=== PATIENT | male | born 1935 | race Caucasian/White ===

== ENCOUNTER 2016-10-08 18:30 | Outpatient (CLI) | payer SELFPAY | END 2016-10-08 18:31 | disposition EMS.NT | LOC: EMS 18:30 | PROVIDERS: ATTEND Surgery | DX: R42 Dizziness and giddiness (principal); R53.1 Weakness; W18.39XA Other fall on same level, initial encounter; Y92.009 Unspecified place in unspecified non-institutional (private) residence as the place of occurrence of the external cause ==

== ENCOUNTER 2017-11-22 12:44 | Outpatient (CLI) | payer MEDICARE, OTHER | END 2017-11-22 12:45 | disposition critical access hospital (66) | LOC: EMS 12:44 | PROVIDERS: ATTEND Surgery | DX: R53.1 Weakness (principal); R41.0 Disorientation, unspecified; R09.89 Other specified symptoms and signs involving the circulatory and respiratory systems | CPT/HCPCS: A0425; A0427 ==

== ENCOUNTER 2017-11-22 13:31 | Inpatient (IN) | payer MEDICARE, OTHER ==
--- NOTE | 2017-11-22 13:41 | ED Physician Documentation ---
History of Present Illness - Stated complaint Stated Complaint: FAILURE TO THRVE - Additonal information Additional information: hx from pt 82 male BIBA for AMS X 3 days subj fever poor PO no cough but hypoxic and wheezing en route - hx COPD - beter with neb and O2 no NVD strong smelling urine no blood thinners no fall no apparent pain DNR per [place] POL Review of Systems Constitutional: reports: Fever Ears: denies: Ear pain Throat: denies: Sore throat Cardiac: denies: Chest pain / pressure Respiratory: denies: Cough GI: denies: Abdominal Pain, Nausea, Vomiting, Diarrhea : reports: Other (strong smelling). denies: Dysuria Neurologic: reports: Generalized weakness, Altered mental status. denies: Headache, Head injury Endocrine: denies: Easy bruising / bleeding Immunocompromised: denies: Immunocompromised PD PAST MEDICAL HISTORY - Present Medications Home Medications: Ambulatory Orders Medication Instructions Recorded Confirmed Albuterol Sulf [Ventolin Hfa 2 puffs INH Q4H PRN 11/22/17 11/22/17 Inhaler] Amlodipine Besylate [Norvasc] 2.5 mg PO DAILY 11/22/17 11/22/17 Ergocalciferol (Vitamin D2) 50,000 unit PO Q7D 11/22/17 11/22/17 [Drisdol] Glimepiride [Glimepiride] 1 mg PO DAILYWM 11/22/17 11/22/17 Metformin HCl [Metformin HCl] 500 mg PO BIDWM 11/22/17 11/22/17 Naproxen Sodium [Aleve] 220 mg PO BID PRN 11/22/17 11/22/17 Omeprazole [Omeprazole] 20 mg PO QDAC 11/22/17 11/22/17 Oxybutynin [Ditropan] 5 mg PO BID 11/22/17 11/22/17 predniSONE [Deltasone] 5 mg PO DAILYWM 11/22/17 11/22/17 - Allergies Allergies/Adverse Reactions: Allergies Allergy/AdvReac Type Severity Reaction Status Date / Time iodine Allergy Anaphylaxis Verified 11/22/17 13:43 PD ED PE NORMAL - Vitals Vital signs reviewed: Yes - General General: No: Alert and oriented X 3 (just name) - HEENT HEENT: PERRL. No: Moist mucous membranes (dry) - Cardiac Cardiac: RRR - Respiratory Respiratory: Other (coarse shallow no wheeze now) - Abdomen Abdomen: Soft, Non tender - Derm Derm: Normal color - Extremities Extremities: Normal ROM s pain - Neuro Neuro: Other (confused not following commands but moving all ext) Eye Opening: To Voice Motor: Withdraws to Pain Verbal: Confused GCS Score: 11 Results - Vitals Vitals: Vital Signs - 24 hr 11/22/17 11/22/17 11/22/17 13:35 14:00 15:07 Temperature 36.5 C Heart Rate 82 81 82 Respiratory 16 22 Rate Blood Pressure 152/75 H 148/78 H O2 Saturation 95 95 95 11/22/17 11/22/17 15:52 17:00 Temperature Heart Rate 80 74 Respiratory 17 26 H Rate Blood Pressure 140/75 H 129/70 O2 Saturation 98 98 Oxygen O2 Source Nasal cannula - Labs Labs: Laboratory Tests 11/22/17 11/22/17 11/22/17 13:55 14:36 14:36 WBC 12.1 H RBC 4.89 Hgb 14.3 Hct 42.1 MCV 86.0 MCH 29.2 MCHC 34.0 RDW 13.5 Plt Count 230 MPV 9.2 Neut # (Auto) 6.2 Lymph # (Auto) 3.8 H Sutter # (Auto) 1.9 H Eos # (Auto) 0.2 Baso # (Auto) 0.1 Absolute Nucleated RBC 0.00 Nucleated RBC % 0.0 Manual Slide Review Indicated WBC Morphology Platelet Estimate NORMAL (130-450,000) Platelet Morphology NORMAL APPEARANCE RBC Morph Micro Appear NORMAL APPEARANCE Sodium 136 Potassium 3.9 Chloride 99 L Carbon Dioxide 27 Anion Gap 10.0 BUN 16 Creatinine 1.3 H Estimated GFR (MDRD) 53 L Glucose 183 H Lactic Acid Calcium 9.1 Total Bilirubin 2.2 H AST 16 ALT 15 Alkaline Phosphatase 66 Troponin I < 0.04 Total Protein 7.0 Albumin 3.3 Globulin 3.7 Albumin/Globulin Ratio 0.9 L Lipase 21 L TSH Urine Color Urine Clarity Urine pH Ur Specific Surrency Urine Protein Urine Glucose (UA) Urine Ketones Urine Occult Blood Urine Nitrite Urine Bilirubin Urine Urobilinogen Ur Leukocyte Esterase Urine RBC Urine WBC Urine WBC Clumps Ur Squamous Epith Cells Urine Bacteria Ur Microscopic Review Urine Culture Comments 11/22/17 11/22/17 11/22/17 14:36 14:36 14:55 WBC RBC Hgb Hct MCV MCH MCHC RDW Plt Count MPV Neut # (Auto) Lymph # (Auto) Sutter # (Auto) Eos # (Auto) Baso # (Auto) Absolute Nucleated RBC Nucleated RBC % Manual Slide Review WBC Morphology Platelet Estimate Platelet Morphology RBC Morph Micro Appear Sodium Potassium Chloride Carbon Dioxide Anion Gap BUN Creatinine Estimated GFR (MDRD) Glucose Lactic Acid 1.4 Calcium Total Bilirubin AST ALT Alkaline Phosphatase Troponin I Total Protein Albumin Globulin Albumin/Globulin Ratio Lipase TSH 2.26 Urine Color YELLOW Urine Clarity TURBID Urine pH 6.0 Ur Specific Surrency >=1.030 H Urine Protein 100 H Urine Glucose (UA) NEGATIVE Urine Ketones TRACE Urine Occult Blood MODERATE H Urine Nitrite POSITIVE H Urine Bilirubin NEGATIVE Urine Urobilinogen 0.2 (NORMAL) Ur Leukocyte Esterase LARGE H Urine RBC TNTC H Urine WBC >25 H Urine WBC Clumps PRESENT Ur Squamous Epith Cells NONE SEEN Urine Bacteria Many H Ur Microscopic Review INDICATED Urine Culture Comments INDICATED - Rads (name of study) CTH Radiology: See rad report (no acute process, remote infarcts, mod enlarged ventricles suggesting possible normal pressure hydrocephalus) CXR Radiology: See rad report (NACPD, old clavicle fx) CT AP Radiology: See rad report (no stones, bladder wall thickening and perinephric starnding c/w pyelo, diverticulosis and chronic findings) PD MEDICAL DECISION MAKING - ED course ED course: told family about NPH "extra water on the brain" and thinks that is not new AMS fever and UTI but not hypotensive or tachy and neg lactate - do not htink sepsis - gave IV ab - not 30cc/kg bolus though given hematuria - and bili - got CT AP - no gallstones or kidney stones will admit spoke to hospitalist at 1740 - Sepsis Event Vital Signs: Vital Signs - 24 hr 11/22/17 11/22/17 11/22/17 13:35 14:00 15:07 Temperature 36.5 C Heart Rate 82 81 82 Respiratory 16 22 Rate Blood Pressure 152/75 H 148/78 H O2 Saturation 95 95 95 11/22/17 11/22/17 15:52 17:00 Temperature Heart Rate 80 74 Respiratory 17 26 H Rate Blood Pressure 140/75 H 129/70 O2 Saturation 98 98 Oxygen O2 Source Nasal cannula Departure - Departure Disposition: 66 [facility] DC/Xfer Clinical Impression: Mental status alteration Qualifiers: Altered mental status type: unspecified Qualified Code(s): R41.82 - Altered mental status, unspecified UTI (urinary tract infection) Qualifiers: Urinary tract infection type: site unspecified Hematuria presence: with hematuria Qualified Code(s): N39.0 - Urinary tract infection, site not specified
[2017-11-22 14:09] LABS: BASOPHILS # (AUTO) 0.1 10^3/uL (0.0-0.1); BASOPHILS % (AUTO) 0.4 %; EOSINOPHILS # (AUTO) 0.2 10^3/uL (0.0-0.7); EOSINOPHILS % (AUTO) 1.5 %; HGB - HEMOGLOBIN 14.3 g/dL (14.0-18.0); LYMPHOCYTES # (AUTO) 3.8 10^3/uL (1.5-3.5); LYMPHOCYTES % (AUTO) 31.4 %; MEAN CORPUSCULAR HEMOGLOBIN 29.2 pg (27.0-31.0); MEAN PLATELET VOLUME 9.2 fL (7.4-11.4); MONOCYTES # (AUTO) 1.9 10^3/uL (0.0-1.0); MONOCYTES % (AUTO) 15.5 %; NEUTROPHILS # (AUTO) 6.2 10^3/uL (1.5-6.6); NEUTROPHILS % (AUTO) 51.2 %; PLT - PLATELET COUNT 230 10^3/uL (130-450); RED BLOOD COUNT 4.89 10^6/uL (4.70-6.10); RED CELL DISTRIBUTION WIDTH 13.5 % (12.0-15.0); WHITE BLOOD COUNT 12.1 x10^3/uL (4.8-10.8)
[2017-11-22 14:41] LABS: PLATELET MORPHOLOGY NORMAL APPEARANCE (NORMAL)
[2017-11-22 14:42] LABS: PLATELET ESTIMATE, MANUAL NORMAL (130-450,000) (NORMAL); RBC MORPHOLOGY (MULTIPLE) NORMAL APPEARANCE (NORMAL)
[2017-11-22 14:54] LABS: ALBUMIN 3.3 g/dL (3.2-5.5); ALBUMIN/GLOBULIN RATIO 0.9 (1.0-2.2); BILIRUBIN,TOTAL 2.2 mg/dL (0.2-1.0); CALCIUM 9.1 mg/dL (8.5-10.3); CREATININE 1.3 mg/dL (0.6-1.2)
--- NOTE | 2017-11-22 14:55 | CT Report ---
Procedure Date: 11/22/2017 Accession Number: [id number] / [id number] Procedure: CT - Head W/O CPT Code: FULL RESULT: EXAM: CT HEAD EXAM DATE: 11/22/2017 02:23 PM. CLINICAL HISTORY: AMS. COMPARISON: None. TECHNIQUE: Multiaxial CT images were obtained from the foramen magnum to the vertex. Reformats: Sagittal and coronal. IV contrast: None. In accordance with CT protocol optimization, one or more of the following dose reduction techniques were utilized for this exam: automated exposure control, adjustment of mA and/or KV based on patient size, or use of iterative reconstructive technique. FINDINGS: Parenchyma: No intraparenchymal hemorrhage. No evidence of mass, midline shift, or CT findings of acute infarct. Remote right cerebellar infarct. Remote lacunar infarct in the left thalamus. Peralta-white differentiation is distinct. Mild white matter hypoattenuation. Extraaxial Spaces: Mild volume loss. No subdural or epidural collections identified. Ventricles: Moderately enlarged lateral and third ventricles, sightly out of proportion to sulci. Sinuses and Orbits: Imaged paranasal sinuses, orbits, and mastoids show no significant abnormality. Bones: No evidence of fracture or calvarial defect. Other: None. IMPRESSION: 1. No acute intracranial abnormality. 2. Remote left thalamic and right cerebellar infarcts. 3. Moderately enlarged ventricles may be due to volume loss. The differential diagnosis includes normal pressure hydrocephalus. RADIA
[2017-11-22 15:21] LABS: BILIRUBIN,URINE NEGATIVE (NEGATIVE); GLUCOSE, URINE (UA) NEGATIVE (NEGATIVE); KETONES,URINE (UA) TRACE mg/dL (NEGATIVE); LEUKOCYTE ESTERASE, URINE LARGE (NEGATIVE); NITRITE,URINE POSITIVE (NEGATIVE); OCCULT BLOOD,URINE MODERATE (NEGATIVE); PROTEIN,URINE 100 mg/dL (NEGATIVE); UROBILINOGEN,URINE 0.2 (NORMAL) E.U./dL (NORMAL)
--- NOTE | 2017-11-22 15:27 | XRAY Report ---
Procedure Date: 11/22/2017 Accession Number: [id number] / [id number] Procedure: XR - Chest 2 View X-Ray CPT Code: 53512 FULL RESULT: EXAM: CHEST RADIOGRAPHY. EXAM DATE: 11/22/2017 02:54 PM. CLINICAL HISTORY: Sub fever hypoxia, altered mental status. COMPARISON: None. TECHNIQUE: 2 views. FINDINGS: Lungs/Pleura: No focal consolidation, pleural effusion or pneumothorax. Lungs appear hyperinflated suggesting COPD. Pulmonary vasculature is within normal limits. Mediastinum: Heart and mediastinal contours are unremarkable. Other: Numerous upper abdominal surgical clips present. Multifocal wedge compression deformities with underlying diffuse osseous demineralization, endplate remodeling suggests these are chronic. Old healed right clavicular fracture. 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 IMPRESSION: 1. No acute cardiopulmonary abnormality. 2. 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 Recommend correlation with physical exam and clinical history to assess acuity. RADIA
[2017-11-22 15:39] LABS: CLARITY,URINE TURBID (CLEAR)
[2017-11-22 15:40] LABS: BACTERIA,URINE Many /HPF (None Seen); RBC,URINE TNTC /HPF (0-5); SQUAMOUS EPITHELIAL CELL,UR NONE SEEN (<= Few); WBC CLUMPS,URINE PRESENT
[2017-11-22] MEDS ORDERED: cefTRIAXone 1 GM in SODIUM CHLORIDE 0.9% MINIBAG 100 ML IV STA (15:46)
--- NOTE | 2017-11-22 17:16 | CT Report ---
Procedure Date: 11/22/2017 Accession Number: [id number] / [id number] Procedure: CT - Abdomen/Pelvis W/O CPT Code: FULL RESULT: EXAM: CT ABDOMEN AND PELVIS (CT KUB) EXAM DATE: 11/22/2017 04:44 PM. CLINICAL HISTORY: Urinary tract infection, hematuria, question stone. COMPARISONS: Same-day chest radiograph. TECHNIQUE: Routine axial helical CT imaging was performed through the abdomen and pelvis without IV contrast. Reconstructions: Coronal and sagittal. In accordance with CT protocol optimization, one or more of the following dose reduction techniques were utilized for this exam: automated exposure control, adjustment of mA and/or KV based on patient size, or use of iterative reconstructive technique. FINDINGS: Lung Bases: No mass, consolidation or pleural effusion. Coronary artery calcifications with normal heart size. Small pericardial effusion located anteriorly. Right Kidney/Ureter: No stones, hydronephrosis or hydroureter. No contour-deforming lesion. Mild perinephric stranding is symmetric with the left. Left Kidney/Ureter: No stones, hydronephrosis or hydroureter. No contour-deforming lesion. Mild perinephric stranding is symmetric with the right. Other Solid Organs: Punctate calcified granulomata within the liver which is otherwise unremarkable (3/39). Moderate to severe atrophy of the pancreas which is otherwise unremarkable. Normal adrenal glands. Normal-sized spleen. Gallbladder/Bile Ducts: Unremarkable. Peritoneal Cavity: No free fluid or free air. No jewels adenopathy by noncontrast exam. No evidence of bowel obstruction or inflammation. Postsurgical changes in the left upper quadrant and near the GE junction. Stool burden is within normal limits. Mild distal colonic diverticulosis without acute diverticulitis. Appendix is normal. 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 Urinary bladder wall appears thickened. Vasculature: No abdominal aortic aneurysm with moderate to marked calcific atherosclerosis. Other: Partially visualized bilateral total hip arthroplasties. Diffuse osseous demineralization. No acute osseous abnormality or suspicious focal osseous lesion. IMPRESSION: 1. Urinary bladder wall thickening and mild bilateral perinephric stranding without calculi or obstruction. Findings are in keeping with cystitis. The perinephric stranding may be senescent or could be seen with urinary tract infection or pyelonephritis. No evidence of a perinephric abscess. 2. Colonic diverticulosis without acute diverticulitis and additional findings as above.. RADIA
[2017-11-22] MEDS ORDERED: PROMETHAZINE 25 MG/1 ML VIAL IM PRN (17:43)
[2017-11-22] MEDS ORDERED: ONDANSETRON 4 MG/2 ML VIAL IVP PRN (17:43)
[2017-11-22] MEDS ORDERED: ACETAMINOPHEN 325 MG TABLET PO PRN (17:43)
[2017-11-22] MEDS ORDERED: oxyCODONE 5 MG TABLET PO PRN (17:43)
[2017-11-22] MEDS ORDERED: SODIUM CHLORIDE FLUSH 0.9% 10 ML SYRINGE IVP PRN (17:43)
[2017-11-22] MEDS ORDERED: PROCHLORPERAZINE 10 MG/2 ML VIAL IVP PRN (17:43)
--- NOTE | 2017-11-22 17:53 | HISTORY & PHYSICAL EXAMINATION ---
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 According to the patient's the patient has been declining over the last 7-8 years with worsening COPD and really declined over the last year and a half. She states that things started when he had a stroke and fell and was taken to a trauma care unit where he was hospitalized for prolonged time. She states that he has been in and out of the hospital multiple times over the last year. She states that her and her used to spend their kim in [place] but recently their children have brought them permanently up to [facility] as the patient's health has become so poor. She states that over the last few months his COPD is so bad that he can barely walk 4-5 feet before he has to stop and sit in his walker. She states that his quality of life has declined significantly. Over the last 3-4 days she states that the patient has had decreased appetite and has only eaten a couple of pieces of watermelon in the last 4 days. She states that he has become increasingly confused and this morning he was crying out and seemed to be acting like a child. She states that he became very confused last night and was not making any sense. She states that a home health worker came to see him today and advised that he come to the emergency department. She also states that she is noted that he has had foul-smelling urine the last several days. She is also noticed that it has been cloudy and blood-tinged. The patient himself is unable to provide any significant history. He has difficulties with his speech and although he does greet me he cannot give me much insight on his illness or what has been going on over the last several days. On presentation to the emergency department the patient was afebrile and slightly hypertensive but otherwise vital signs were within normal limits. The patient was very confused and again unable to provide history. The patient underwent routine lab work which showed that he had a leukocytosis of 12.1 and a mildly elevated bilirubin of 2.2. The patient's lactic acid was 1.4 and his TSH was normal. Patient's creatinine was 1.3 with no prior baseline. Patient was hyperglycemic with a glucose of 183. The patient's urine was very cloudy appearing and was positive for urinary tract infection with greater than 25 WBCs , many bacteria, positive leukocyte esterase, positive nitrites and moderate blood. The patient did undergo a chest x-ray which showed his old healed right clavicular fracture and chronic ununited left distal clavicular fracture. There was no evidence of any cardiopulmonary abnormality on the chest x-ray. The patient also had a CT head which showed old left thalamic and right cerebellar infarcts as well as normal pressure hydrocephalus. There was no acute findings on the CT scan. The patient also underwent a CT of his abdomen and pelvis which revealed bladder wall thickening and mild bilateral perinephric stranding consistent with a cystitis. Given the patient's altered mental status, leukocytosis and severe urinary tract infection the patient was admitted to the medical [facility] for IV antibiotics and IV fluids. History - Past Medical History Cardiovascular: reports: Hypertension Respiratory: reports: COPD Neuro: reports: Dementia, CVA, Other (NPH) Endocrine/Autoimmune: reports: Type 2 diabetes - Past Surgical History General: reports: Hiatal hernia repair, Other - Family & Social History Family History: Mother: (Father at the age of 70 and mother when the patient was young), CAD, Father: Family History Comment/Other: The patient was an only child and there is no family history of diabetes or stroke. Living arrangement: At home Living Situation: With spouse/s.o. Social History Notes: The patient lives with his . The patient is completely dependent on his for all his activities of daily living. He has been dependent on her for several years now. The couple have been for 43 years. The patient spent 46 years of his life and possible and then 13 years on [facility]. He spent many of the years on [facility] [place] to [place] during the [place]. The patient has 4 biological children and 2 stepchildren. He has 7 grandchildren. The patient has a history of heavy smoking but quit many years ago. He smoked up to 3 packs a day for 40 years. He was a social drinker but has not had alcohol for several years now. He denies any illicit drug use - POLST Patient has POLST: Yes POLST Status: DNR Meds/Allgy - Home Medications Home Medications: Ambulatory Orders Medication Instructions Recorded Confirmed Albuterol Sulf [Ventolin Hfa 2 puffs INH Q4H PRN 11/22/17 11/22/17 Inhaler] Amlodipine Besylate [Norvasc] 2.5 mg PO DAILY 11/22/17 11/22/17 Ergocalciferol (Vitamin D2) 50,000 unit PO Q7D 11/22/17 11/22/17 [Drisdol] Glimepiride [Glimepiride] 1 mg PO DAILYWM 11/22/17 11/22/17 Metformin HCl [Metformin HCl] 500 mg PO BIDWM 11/22/17 11/22/17 Naproxen Sodium [Aleve] 220 mg PO BID PRN 11/22/17 11/22/17 Omeprazole [Omeprazole] 20 mg PO QDAC 11/22/17 11/22/17 Oxybutynin [Ditropan] 5 mg PO BID 11/22/17 11/22/17 predniSONE [Deltasone] 5 mg PO DAILYWM 11/22/17 11/22/17 - Allergies Allergies/Adverse Reactions: Allergies Allergy/AdvReac Type Severity Reaction Status Date / Time iodine Allergy Anaphylaxis Verified 11/22/17 13:43 Review of Systems - Other Findings Other Findings: Patient unable to provide a conference of review of systems secondary to dementia and metabolic encephalopathy. Exam - Vital Signs Reviewed Vital Signs: Yes Vital Signs: Vital Signs x48h Temp Pulse Resp BP Pulse Ox 11/22/17 17:00 74 26 H 129/70 98 11/22/17 15:52 80 17 140/75 H 98 11/22/17 15:07 82 22 95 11/22/17 14:00 81 148/78 H 95 11/22/17 13:35 36.5 C 82 16 152/75 H 95 - Physical Exam General Appearance: positive: Alert, Mild distress (The patient cannot sit still in bed and continue the moves around), Other (He has abnormal speech) Eyes Bilateral: positive: Normal inspection, PERRL, EOMI, No lid inflammation, Conjunctivae nml, No scleral icterus ENT: positive: ENT inspection nml, Pharynx nml, Dry mucous membranes. negative : Purulent nasal drainage, Pharyngeal erythema, Oral lesions Neck: positive: Nml inspection, Thyroid nml, No JVD, Trachea midline. negative : Thyromegaly, Lymphadenopathy (R), Lymphadenopathy (L), Carotid bruit, Tracheal deviation Respiratory: positive: Chest non-tender, No respiratory distress, Wheezes ( Scattered) Cardiovascular: positive: Regular rate & rhythm, No murmur, No gallop Peripheral Pulses: positive: 2+ Abdomen: positive: Non-tender, No organomegaly, Nml bowel sounds, No distention. negative: Guarding, Rebound, Hepatomegaly Back: positive: Nml inspection. negative: CVA tenderness (R), CVA tenderness (L ) Skin: positive: Color nml, No rash, Warm, Dry. negative: Cyanosis, Diaphoresis , Pallor Extremities: positive: Non-tender, Full ROM, Nml appearance, No pedal edema Neurologic/Psychiatric: positive: CN's nml (2-12), Sensation nml, Mood/affect nml, Disoriented to time, Weakness, Slurred/abnml speech Conclusion/Plan - Problem List (1) Cystitis Conclusion/Plan: Patient presented to the emergency department with 3 days of altered mental status and poor appetite. On presentation the patient had leukocytosis with WBC count of 12.1. He appeared to be dry on examination and urinalysis was grossly positive with greater than 25 WBCs, many bacteria, large leukocyte esterase, positive nitrites and moderate blood. The patient also had a CT of his abdomen and pelvis given the blood in the urine which showed urinary bladder wall thickening and mild bilateral perinephric stranding in keeping with cystitis. Plan: IV ceftriaxone IV fluids Follow-up urine and blood cultures (2) Metabolic encephalopathy Conclusion/Plan: Patient has a history of baseline dementia and history of abnormal pressures hydrocephalus with history of CVA. However according to the patient's the patient's mentation is off from his baseline and he had not been eating for the last 3 days. It appears likely that the patient's metabolic encephalopathy and altered mental status is secondary to urinary tract infection. We will treat the patient's urinary tract infection and also give him IV fluids and monitor his mentation. (3) Diabetes Conclusion/Plan: Patient has a history of diabetes and is on metformin and glimepiride at home. The patient does take chronic prednisone for COPD and is hyperglycemic on presentation likely secondary to ongoing urinary tract infection. Plan: Hold metformin and glimepiride Place on sliding scale insulin Check hemoglobin A1c Carb controlled diet Monitor blood glucose before meals at bedtime Qualifiers: Diabetes mellitus type: type 2 Diabetes mellitus residential insulin use: without residential use Diabetes mellitus complication status: with hyperglycemia Qualified Code(s): E11.65 - Type 2 diabetes mellitus with hyperglycemia (4) Hypertension Conclusion/Plan: Patient is a history of hypertension and is hypertensive on presentation. The patient is on amlodipine at home. We will continue the patient's home dose of amlodipine and monitor blood pressure. The patient's medication will be titrated as needed. Qualifiers: Hypertension type: essential hypertension Qualified Code(s): I10 - Essential (primary) hypertension (5) COPD (chronic obstructive pulmonary disease) Conclusion/Plan: The patient has history of severe COPD on 2.5 L of O2 at home and was wheezing and hypoxic in route to the hospital according to EMS. The patient did receive a nebulizer treatment with which his symptoms resolved. The patient is on chronic prednisone at home. Patient will be continued on his home dose of prednisone while he is hospitalized and placed on duo nebs as needed. Currently he appears to be stable. The patient appears to be declining and has a very poor quality of life. He can only walk 4-5 feet before he has to sit down. The patients is interested in hospice for her . Qualifiers: COPD type: unspecified COPD Qualified Code(s): J44.9 - Chronic obstructive pulmonary disease, unspecified (6) History of dementia Conclusion/Plan: Patient does have a history of dementia however his mentation is off from his baseline secondary to urinary tract infection. Patient is at high risk for sundowning and delirium. We will need to continually orient the patient while he is hospitalized. We will need to avoid any sedative medications including Ativan. - Lab Results Lab results reviewed: Yes Fish Bones: 11/22/17 13:55 11/22/17 14:36 Other Lab Results: Laboratory Results WBC 12.1 x10^3/uL (4.8-10.8) H 11/22/17 13:55 RBC 4.89 10^6/uL (4.70-6.10) 11/22/17 13:55 Hgb 14.3 g/dL (14.0-18.0) 11/22/17 13:55 Hct 42.1 % (42.0-52.0) 11/22/17 13:55 MCV 86.0 fL (80.0-94.0) 11/22/17 13:55 MCH 29.2 pg (27.0-31.0) 11/22/17 13:55 MCHC 34.0 g/dL (32.0-36.0) 11/22/17 13:55 RDW 13.5 % (12.0-15.0) 11/22/17 13:55 Plt Count 230 10^3/uL (130-450) 11/22/17 13:55 MPV 9.2 fL (7.4-11.4) 11/22/17 13:55 Neut # (Auto) 6.2 10^3/uL (1.5-6.6) 11/22/17 13:55 Lymph # (Auto) 3.8 10^3/uL (1.5-3.5) H 11/22/17 13:[address] [place] # (Auto) 1.9 10^3/uL (0.0-1.0) H 11/22/17 13:55 Eos # (Auto) 0.2 10^3/uL (0.0-0.7) 11/22/17 13:55 Baso # (Auto) 0.1 10^3/uL (0.0-0.1) 11/22/17 13:55 Absolute Nucleated RBC 0.00 x10^3/uL 11/22/17 13:55 Nucleated RBC % 0.0 /100WBC 11/22/17 13:55 Manual Slide Review Indicated 11/22/17 13:55 WBC Morphology (NORMAL) 11/22/17 13:55 Platelet Estimate NORMAL (130-450,000) (NORMAL) 11/22/17 13:55 Platelet Morphology NORMAL APPEARANCE (NORMAL) 11/22/17 13:55 RBC Morph Micro Appear NORMAL APPEARANCE (NORMAL) 11/22/17 13:55 Sodium 136 mmol/L (135-145) 11/22/17 14:36 Potassium 3.9 mmol/L (3.5-5.0) 11/22/17 14:36 Chloride 99 mmol/L (101-111) L 11/22/17 14:36 Carbon Dioxide 27 mmol/L (21-32) 11/22/17 14:36 Anion Gap 10.0 (6-13) 11/22/17 14:36 BUN 16 mg/dL (6-20) 11/22/17 14:36 Creatinine 1.3 mg/dL (0.6-1.2) H 11/22/17 14:36 Estimated GFR (MDRD) 53 (>89) L 11/22/17 14:36 Glucose 183 mg/dL (70-100) H 11/22/17 14:36 Lactic Acid 1.4 mmol/L (0.5-2.2) 11/22/17 14:36 Calcium 9.1 mg/dL (8.5-10.3) 11/22/17 14:36 Total Bilirubin 2.2 mg/dL (0.2-1.0) H 11/22/17 14:36 AST 16 IU/L (10-42) 11/22/17 14:36 ALT 15 IU/L (10-60) 11/22/17 14:36 Alkaline Phosphatase 66 IU/L (42-121) 11/22/17 14:36 Troponin I < 0.04 ng/mL (<0.49) 11/22/17 14:36 Total Protein 7.0 g/dL (6.7-8.2) 11/22/17 14:36 Albumin 3.3 g/dL (3.2-5.5) 11/22/17 14:36 Globulin 3.7 g/dL (2.1-4.2) 11/22/17 14:36 Albumin/Globulin Ratio 0.9 (1.0-2.2) L 11/22/17 14:36 Lipase 21 U/L (22-51) L 11/22/17 14:36 TSH 2.26 uIU/mL (0.34-5.60) 11/22/17 14:36 Urine Color YELLOW 11/22/17 14:55 Urine Clarity TURBID (CLEAR) 11/22/17 14:55 Urine pH 6.0 PH (5.0-7.5) 11/22/17 14:55 Ur Specific [place] >=1.030 (1.002-1.030) H 11/22/17 14:55 Urine Protein 100 mg/dL (NEGATIVE) H 11/22/17 14:55 Urine Glucose (UA) NEGATIVE mg/dL (NEGATIVE) 11/22/17 14:55 Urine Ketones TRACE mg/dL (NEGATIVE) 11/22/17 14:55 Urine Occult Blood MODERATE (NEGATIVE) H 11/22/17 14:55 Urine Nitrite POSITIVE (NEGATIVE) H 11/22/17 14:55 Urine Bilirubin NEGATIVE (NEGATIVE) 11/22/17 14:55 Urine Urobilinogen 0.2 (NORMAL) E.U./dL (NORMAL) 11/22/17 14:55 Ur Leukocyte Esterase LARGE (NEGATIVE) H 11/22/17 14:55 Urine RBC TNTC /HPF (0-5) H 11/22/17 14:55 Urine WBC >25 /HPF (0-3) H 11/22/17 14:55 Urine WBC Clumps PRESENT 11/22/17 14:55 Ur Squamous Epith Cells NONE SEEN (<= Few) 11/22/17 14:55 Urine Bacteria Many /HPF (None Seen) H 11/22/17 14:55 Ur Microscopic Review INDICATED 11/22/17 14:55 Urine Culture Comments INDICATED 11/22/17 14:55 - Diagnostic Imaging Results Diagnostic Imaging Results: positive: Final report reviewed Diagnostic Imaging Results Comments: Chest x-ray Impression: No acute cardiopulmonary abnormality 2. 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 CT head Impression: 1. No acute intracranial abnormality. 2. Remote left thalamic and right cerebellar infarcts. 3. Moderately enlarged ventricles may be due to volume loss. The differential diagnosis includes normal pressure hydrocephalus. CT abdomen/pelvis Impression: 1. Urinary bladder wall thickening and mild bilateral perinephric stranding without calculi or obstruction. Findings are in keeping with cystitis. The perinephric stranding may be senescent or could be seen with urinary tract infection or pyelonephritis. No evidence of a perinephric abscess. 2. Colonic diverticulosis without acute diverticulitis and additional findings as above. Core Measures - Anticipated LOS I expect patient to be DC'd or transferred within 96 hours.: Yes - DVT/VTE - Prophylaxis VTE/DVT Prophylaxis med ordered at admit?: Yes
[2017-11-22] MEDS ORDERED: IPRATROPIUM/ALBUTEROL 3 ML NEB INH PRN (17:54)
[2017-11-22] MEDS: SODIUM CHLORIDE 0.9% 1,000 ML IV SCH (19:31)
[2017-11-22] MEDS: OXYBUTYNIN 5MG TABLET PO SCH (21:52)
[2017-11-22] MEDS: INSULIN ASPART 300 UNIT/3 ML PEN SUBQ SCH ×2 (21:55→22:07)
[2017-11-22] MEDS: SODIUM CHLORIDE FLUSH 0.9% 10 ML SYRINGE IVP SCH (23:40)
[2017-11-22] MEDS: ZINC OXIDE 20% OINT 28.35 GM TUBE TOP PRN (23:47)
[2017-11-23] MEDS: SODIUM CHLORIDE 0.9% 1,000 ML IV SCH ×3 (04:38→23:31)
[2017-11-23 05:56] LABS: BASOPHILS % (AUTO) 0.4 %; EOSINOPHILS # (AUTO) 0.2 10^3/uL (0.0-0.7); EOSINOPHILS % (AUTO) 2.5 %; HGB - HEMOGLOBIN 13.5 g/dL (14.0-18.0); LYMPHOCYTES # (AUTO) 2.4 10^3/uL (1.5-3.5); LYMPHOCYTES % (AUTO) 30.1 %; MEAN CORPUSCULAR HEMOGLOBIN 29.8 pg (27.0-31.0); MEAN CORPUSCULAR HGB CONC 34.8 g/dL (32.0-36.0); MEAN CORPUSCULAR VOLUME 85.8 fL (80.0-94.0); MEAN PLATELET VOLUME 9.2 fL (7.4-11.4); MONOCYTES # (AUTO) 1.1 10^3/uL (0.0-1.0); MONOCYTES % (AUTO) 14.4 %; NEUTROPHILS # (AUTO) 4.2 10^3/uL (1.5-6.6); NEUTROPHILS % (AUTO) 52.6 %; PLT - PLATELET COUNT 208 10^3/uL (130-450); RED BLOOD COUNT 4.53 10^6/uL (4.70-6.10); RED CELL DISTRIBUTION WIDTH 13.5 % (12.0-15.0); WHITE BLOOD COUNT 7.9 x10^3/uL (4.8-10.8)
[2017-11-23 06:07] LABS: ALBUMIN 2.9 g/dL (3.2-5.5); BILIRUBIN,TOTAL 1.1 mg/dL (0.2-1.0); CALCIUM 8.6 mg/dL (8.5-10.3); CREATININE 1.1 mg/dL (0.6-1.2); TOTAL PROTEIN 5.8 g/dL (6.7-8.2)
[2017-11-23 06:35] LABS: HB2 TOTAL 14.3 g/dL; HEMOGLOBIN A1C 1.25 g/dL; HEMOGLOBIN A1C % 10.1 % (4.6-6.2)
[2017-11-23] MEDS: INSULIN ASPART 300 UNIT/3 ML PEN SUBQ SCH ×4 (08:48→21:02)
[2017-11-23] MEDS: amLODIPine 5 MG TABLET PO SCH (08:50)
[2017-11-23] MEDS: FAMOTIDINE 20 MG TABLET PO SCH (08:50)
[2017-11-23] MEDS: SACCHAROMYCES BOULARDII 250 MG CAPSULE PO SCH ×2 (08:51→17:11)
[2017-11-23] MEDS: OXYBUTYNIN 5MG TABLET PO SCH ×2 (08:51→21:02)
[2017-11-23] MEDS: predniSONE 5 MG TABLET PO SCH (08:51)
[2017-11-23] MEDS: cefTRIAXone 1 GM in SODIUM CHLORIDE 0.9% MINIBAG 100 ML IV SCH (08:54)
[2017-11-23] MEDS: ENOXAPARIN 40 MG/0.4 ML SYRINGE SUBQ SCH (08:57)
[2017-11-23] MEDS: POLYETHYLENE GLYCOL 3350 17 GM PACKET PO SCH (08:58)
[2017-11-23] MEDS: SODIUM CHLORIDE FLUSH 0.9% 10 ML SYRINGE IVP SCH ×2 (09:00→17:11)
--- NOTE | 2017-11-23 16:10 | PROVIDER PROGRESS NOTE ---
Assessment/Plan - Problem List (1) Cystitis Assessment/Plan: Patient presented to the emergency department with 3 days of altered mental status and poor appetite. On presentation the patient had leukocytosis with WBC count of 12.1. He appeared to be dry on examination and urinalysis was grossly positive with greater than 25 WBCs, many bacteria, large leukocyte esterase, positive nitrites and moderate blood. The patient also had a CT of his abdomen and pelvis given the blood in the urine which showed urinary bladder wall thickening and mild bilateral perinephric stranding in keeping with cystitis. Patient continues to be confused. According to his patient has not improved very much. He did have a few bites of food. 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 However according to the patient's the patient's mentation is off from his baseline and he had not been eating for the last 3 days. It appears likely that the patient's metabolic encephalopathy and altered mental status is secondary to urinary tract infection. According to patients not much improvement since admission. Will continue IV abx and continue to monitor. (3) Diabetes Conclusion/Plan: Patient has a history of diabetes and is on metformin and glimepiride at home. The patient does take chronic prednisone for COPD and is hyperglycemic on presentation likely secondary to ongoing urinary tract infection. BG improved Plan: Hold metformin and glimepiride Place on sliding scale insulin Hemoglobin A1c is 10.1 Carb controlled diet Monitor blood glucose before meals at bedtime Qualifiers: Diabetes mellitus type: type 2 Diabetes mellitus mcc insulin use: without mcc use Diabetes mellitus complication status: with hyperglycemia Qualified Code(s): E11.65 - Type 2 diabetes mellitus with hyperglycemia (4) Hypertension Conclusion/Plan: Continue home meds BP improved but still elevated Qualifiers: Hypertension type: essential hypertension Qualified Code(s): I10 - Essential (primary) hypertension (5) COPD (chronic obstructive pulmonary disease) Conclusion/Plan: The patient has history of severe COPD on 2.5 L of O2 at home and was wheezing and hypoxic in route to the hospital according to EMS. The patient did receive a nebulizer treatment with which his symptoms resolved. The patient is on chronic prednisone at home. Patient will be continued on his home dose of prednisone while he is hospitalized and placed on duo nebs as needed. Currently he appears to be stable. The patient appears to be declining and has a very poor quality of life. He can only walk 4-5 feet before he has to sit down. The patients is interested in hospice for her and we consulted Palliative Care today. Qualifiers: COPD type: unspecified COPD Qualified Code(s): J44.9 - Chronic obstructive pulmonary disease, unspecified (6) History of dementia Conclusion/Plan: Patient does have a history of dementia however his mentation is off from his baseline secondary to urinary tract infection. Patient is at high risk for sundowning and delirium. We will need to continually orient the patient while he is hospitalized. We will need to avoid any sedative medications including Ativan. - Current Meds Current Meds: Current Medications Generic Name Dose Route Start Last Admin Trade Name Freq PRN Reason Stop Dose Admin Amlodipine Besylate 2.5 mg 11/23/17 09:00 11/23/17 08:50 Norvasc PO 2.5 mg DAILY SAMIR Administration Enoxaparin Sodium 40 mg 11/23/17 09:00 11/23/17 08:57 Lovenox SUBQ 40 mg DAILY SAMIR Administration Famotidine 20 mg 11/23/17 09:00 11/23/17 08:50 Pepcid PO 20 mg DAILY SAMIR Administration Ceftriaxone Sodium 1 gm/ 100 mls @ 200 mls/hr 11/23/17 09:00 11/23/17 09:25 Sodium Chloride IV Infused DAILY SAMIR Infusion Sodium Chloride 1,000 mls @ 100 mls/hr 11/22/17 19:15 11/23/17 14:38 Normal Saline 0.9% IV 100 mls/hr .Q10H SAMIR Administration Insulin Aspart 1 - 5 unit 11/22/17 21:00 11/23/17 11:59 Novolog SUBQ 2 unit 0800,1200,1700,2100 SAMIR Administration Protocol Multi-Ingredient Ointment 1 applic 11/22/17 22:49 11/22/17 23:47 Zinc Oxide TOP 1 applic PRN PRN Administration Skin Care Oxybutynin Chloride 5 mg 11/22/17 21:00 11/23/17 08:51 Ditropan PO 5 mg BID SAMIR Administration Polyethylene Glycol 17 gm 11/23/17 09:00 11/23/17 08:58 Miralax PO 17 gm DAILY SAMIR Administration Prednisone 5 mg 11/23/17 08:00 11/23/17 08:51 Deltasone PO 5 mg DAILYWM SAMIR Administration Saccharomyces Boulardii 250 mg 11/23/17 08:00 11/23/17 08:51 Florastor PO 250 mg BIDWM SAMIR Administration Sodium Chloride 10 ml 11/23/17 01:00 11/23/17 09:00 Normal Saline Flush 0.9% IVP Not Given 0100,0900,1700 SAMIR - Lab Result Lab results reviewed: Yes Fish Bone Diagrams: 11/23/17 05:25 11/23/17 05:25 - Diagnostic Imaging Results Diagnostic Imaging Results: Final report reviewed - Additional Planning Condition/Complexity: Guarded My Orders: My Active Orders 11/22/17 17:54 Ipratropium/Albuterol [Duoneb] 3 ml INH Q4HR PRN 11/22/17 22:49 Zinc Oxide 20% Oint [Zinc Oxide] 1 applic TOP PRN PRN 11/23/17 Palliative Care Consult [CONS] Routine Consult/Specialty: Other (Palliative Care) Plan Discussed with:: Family, Spouse Time Spent: 31-60 minutes Subjective - Subjective Patient Reports: Other (Patient still very drowsy and unable to provide much information.) Nursing Reports: Confused Objective Vital Signs: Vital Signs - 24 hr 11/22/17 11/22/17 11/22/17 18:36 19:35 23:40 Temperature 36.8 C 37.4 C 37.2 C Heart Rate 74 Heart Rate [ 73 75 Brachial] Respiratory 24 20 20 Rate Blood Pressure 110/92 H Blood Pressure 162/60 H 148/56 H [Left Brachial artery] O2 Saturation 95 97 95 11/23/17 08:00 Temperature 37.2 C Heart Rate Heart Rate [ 62 Brachial] Respiratory 22 Rate Blood Pressure Blood Pressure 156/61 H [Left Brachial artery] O2 Saturation 95 Oxygen O2 Source Nasal cannula I&O (Last 24 Hrs): Intake and Output Totals x24h 11/21/17 11/22/17 11/23/17 23:59 23:59 23:59 Intake Total 200 2361.667 Balance 200 2361.667 General: Other (Drowsy, confused) HEENT: Atraumatic, PERRLA, EOMI, Other (Dry mucus membranes) Neck: Supple, No JVD, No thyromegaly, +2 carotid pulse wo bruit, No LAD Lymphatic: no adenopathy Neuro: Alert, Non Focal, CN 2-12 Grossly Intact, Other (A&Ox1) Cardiovascular: Regular rate, Normal S1, Normal S2, No murmurs Respiratory: Chest non-tender, No respiratory distress, Breath sounds nml Abdomen: Normal bowel sounds, Soft, No tenderness, No hepatospenomegaly Extremities: No clubbing, No cyanosis, No edema, Normal pulses Skin: No rashes, No breakdown - Results Results: Laboratory Results WBC 7.9 x10^3/uL (4.8-10.8) 11/23/17 05:25 RBC 4.53 10^6/uL (4.70-6.10) L 11/23/17 05:25 Hgb 13.5 g/dL (14.0-18.0) L 11/23/17 05:25 Hct 38.9 % (42.0-52.0) L 11/23/17 05:25 MCV 85.8 fL (80.0-94.0) 11/23/17 05:25 MCH 29.8 pg (27.0-31.0) 11/23/17 05:25 MCHC 34.8 g/dL (32.0-36.0) 11/23/17 05:25 RDW 13.5 % (12.0-15.0) 11/23/17 05:25 Plt Count 208 10^3/uL (130-450) 11/23/17 05:25 MPV 9.2 fL (7.4-11.4) 11/23/17 05:25 Neut # (Auto) 4.2 10^3/uL (1.5-6.6) 11/23/17 05:25 Lymph # (Auto) 2.4 10^3/uL (1.5-3.5) 11/23/17 05:25 [place] # (Auto) 1.1 10^3/uL (0.0-1.0) H 11/23/17 05:25 Eos # (Auto) 0.2 10^3/uL (0.0-0.7) 11/23/17 05:25 Baso # (Auto) 0.0 10^3/uL (0.0-0.1) 11/23/17 05:25 Absolute Nucleated RBC 0.01 x10^3/uL 11/23/17 05:25 Nucleated RBC % 0.1 /100WBC 11/23/17 05:25 Manual Slide Review Indicated 11/22/17 13:55 WBC Morphology (NORMAL) 11/22/17 13:55 Platelet Estimate NORMAL (130-450,000) (NORMAL) 11/22/17 13:55 Platelet Morphology NORMAL APPEARANCE (NORMAL) 11/22/17 13:55 RBC Morph Micro Appear NORMAL APPEARANCE (NORMAL) 11/22/17 13:55 Sodium 141 mmol/L (135-145) 11/23/17 05:25 Potassium 3.6 mmol/L (3.5-5.0) 11/23/17 05:25 Chloride 105 mmol/L (101-111) 11/23/17 05:25 Carbon Dioxide 28 mmol/L (21-32) 11/23/17 05:25 Anion Gap 8.0 (6-13) 11/23/17 05:25 BUN 16 mg/dL (6-20) 11/23/17 05:25 Creatinine 1.1 mg/dL (0.6-1.2) 11/23/17 05:25 Estimated GFR (MDRD) 64 (>89) L 11/23/17 05:25 Glucose 145 mg/dL (70-100) H 11/23/17 05:25 POC Whole Bld Glucose 207 mg/dL (70 - 100) H 11/23/17 11:15 Glycated Hemoglobin 10.1 % (4.6-6.2) H 11/23/17 05:25 Estim Average Glucose 243 (70-100) H 11/23/17 05:25 Lactic Acid 1.4 mmol/L (0.5-2.2) 11/22/17 14:36 Calcium 8.6 mg/dL (8.5-10.3) 11/23/17 05:25 Total Bilirubin 1.1 mg/dL (0.2-1.0) H 11/23/17 05:25 AST 11 IU/L (10-42) 11/23/17 05:25 ALT 13 IU/L (10-60) 11/23/17 05:25 Alkaline Phosphatase 62 IU/L (42-121) 11/23/17 05:25 Troponin I < 0.04 ng/mL (<0.49) 11/22/17 14:36 Total Protein 5.8 g/dL (6.7-8.2) L 11/23/17 05:25 Albumin 2.9 g/dL (3.2-5.5) L 11/23/17 05:25 Globulin 2.9 g/dL (2.1-4.2) 11/23/17 05:25 Albumin/Globulin Ratio 1.0 (1.0-2.2) 11/23/17 05:25 Lipase 21 U/L (22-51) L 11/22/17 14:36 TSH 2.26 uIU/mL (0.34-5.60) 11/22/17 14:36 Urine Color YELLOW 11/22/17 14:55 Urine Clarity TURBID (CLEAR) 11/22/17 14:55 Urine pH 6.0 PH (5.0-7.5) 11/22/17 14:55 Ur Specific [place] >=1.030 (1.002-1.030) H 11/22/17 14:55 Urine Protein 100 mg/dL (NEGATIVE) H 11/22/17 14:55 Urine Glucose (UA) NEGATIVE mg/dL (NEGATIVE) 11/22/17 14:55 Urine Ketones TRACE mg/dL (NEGATIVE) 11/22/17 14:55 Urine Occult Blood MODERATE (NEGATIVE) H 11/22/17 14:55 Urine Nitrite POSITIVE (NEGATIVE) H 11/22/17 14:55 Urine Bilirubin NEGATIVE (NEGATIVE) 11/22/17 14:55 Urine Urobilinogen 0.2 (NORMAL) E.U./dL (NORMAL) 11/22/17 14:55 Ur Leukocyte Esterase LARGE (NEGATIVE) H 11/22/17 14:55 Urine RBC TNTC /HPF (0-5) H 11/22/17 14:55 Urine WBC >25 /HPF (0-3) H 11/22/17 14:55 Urine WBC Clumps PRESENT 11/22/17 14:55 Ur Squamous Epith Cells NONE SEEN (<= Few) 11/22/17 14:55 Urine Bacteria Many /HPF (None Seen) H 11/22/17 14:55 Ur Microscopic Review INDICATED 11/22/17 14:55 Urine Culture Comments INDICATED 11/22/17 14:55 ABX Reporting Has patient been on IV antibiotics over the past 48 hours?: No Current Medications - Current Medications Current Medications: Active Medications Acetaminophen (Tylenol) 650 mg PO Q4HR PRN PRN Reason: Pain 1 to 4 Albuterol/Ipratropium (Duoneb) 3 ml INH Q4HR PRN PRN Reason: Wheezing Amlodipine Besylate (Norvasc) 2.5 mg PO DAILY [facility] Last Admin: 11/23/17 08:50 Dose: 2.5 mg Enoxaparin Sodium (Lovenox) 40 mg SUBQ DAILY [facility] Last Admin: 11/23/17 08:57 Dose: 40 mg Famotidine (Pepcid) 20 mg PO DAILY [facility] Last Admin: 11/23/17 08:50 Dose: 20 mg Ceftriaxone Sodium 1 gm/ (Sodium Chloride) 100 mls @ 200 mls/hr IV DAILY [facility] Last Infusion: 11/23/17 09:25 Dose: Infused Sodium Chloride (Normal Saline 0.9%) 1,000 mls @ 100 mls/hr IV .Q10H [facility] Last Admin: 11/23/17 14:38 Dose: 100 mls/hr Insulin Aspart (Novolog) 1 - 5 unit SUBQ 0800,1200,1700,2100 [facility] PRN Reason: Protocol Last Admin: 11/23/17 11:59 Dose: 2 unit Multi-Ingredient Ointment (Zinc Oxide) 1 applic TOP PRN PRN PRN Reason: Skin Care Last Admin: 11/22/17 23:47 Dose: 1 applic Ondansetron HCl (Zofran Inj) 4 mg IVP Q6HR PRN PRN Reason: Nausea / Vomiting Oxybutynin Chloride (Ditropan) 5 mg PO BID [facility] Last Admin: 11/23/17 08:51 Dose: 5 mg Oxycodone HCl (Roxicodone) 5 mg PO Q4HR PRN PRN Reason: Pain 5 to 7 Polyethylene Glycol (Miralax) 17 gm PO DAILY [facility] Last Admin: 11/23/17 08:58 Dose: 17 gm Prednisone (Deltasone) 5 mg PO DAILYWM [facility] Last Admin: 11/23/17 08:51 Dose: 5 mg Prochlorperazine Edisylate (Compazine Inj) 10 mg IVP Q6HR PRN PRN Reason: Nausea / Vomiting Promethazine HCl (Phenergan Inj) 25 mg IM Q6HR PRN PRN Reason: Nausea / Vomiting Saccharomyces Boulardii (Florastor) 250 mg PO BIDWM [facility] Last Admin: 11/23/17 08:51 Dose: 250 mg Sodium Chloride (Normal Saline Flush 0.9%) 10 ml IVP PRN PRN PRN Reason: NEEDED PER PROVIDER ORDERS Sodium Chloride (Normal Saline Flush 0.9%) 10 ml IVP 0100,0900,1700 [facility] Last Admin: 11/23/17 09:00 Dose: Not Given Albuterol Sulf [Ventolin Hfa Inhaler] 2 puffs INH Q4H PRN 11/22/17 Amlodipine Besylate [Norvasc] 2.5 mg PO DAILY 11/22/17 Ergocalciferol (Vitamin D2) [Drisdol] 50,000 unit PO Q7D 11/22/17 Glimepiride [Glimepiride] 1 mg PO DAILYWM 11/22/17 Metformin HCl [Metformin HCl] 500 mg PO BIDWM 11/22/17 Naproxen Sodium [Aleve] 220 mg PO BID PRN 11/22/17 Omeprazole [Omeprazole] 20 mg PO QDAC 11/22/17 Oxybutynin [Ditropan] 5 mg PO BID 11/22/17 predniSONE [Deltasone] 5 mg PO DAILYWM 11/22/17
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
[2017-11-23] MEDS: ZINC OXIDE 20% OINT 28.35 GM TUBE TOP PRN (21:02)
[2017-11-24] MEDS: SODIUM CHLORIDE FLUSH 0.9% 10 ML SYRINGE IVP SCH ×4 (00:50→16:57)
[2017-11-24 05:03] LABS: BASOPHILS # (AUTO) 0.1 10^3/uL (0.0-0.1); BASOPHILS % (AUTO) 1.4 %; EOSINOPHILS # (AUTO) 0.2 10^3/uL (0.0-0.7); EOSINOPHILS % (AUTO) 2.7 %; HGB - HEMOGLOBIN 12.5 g/dL (14.0-18.0); LYMPHOCYTES # (AUTO) 2.4 10^3/uL (1.5-3.5); LYMPHOCYTES % (AUTO) 34.9 %; MEAN CORPUSCULAR HGB CONC 34.6 g/dL (32.0-36.0); MEAN CORPUSCULAR VOLUME 86.8 fL (80.0-94.0); MEAN PLATELET VOLUME 9.2 fL (7.4-11.4); MONOCYTES # (AUTO) 0.9 10^3/uL (0.0-1.0); MONOCYTES % (AUTO) 13.1 %; NEUTROPHILS # (AUTO) 3.3 10^3/uL (1.5-6.6); NEUTROPHILS % (AUTO) 47.9 %; PLT - PLATELET COUNT 181 10^3/uL (130-450); RED BLOOD COUNT 4.17 10^6/uL (4.70-6.10); RED CELL DISTRIBUTION WIDTH 13.4 % (12.0-15.0); WHITE BLOOD COUNT 6.8 x10^3/uL (4.8-10.8)
[2017-11-24 05:09] LABS: ALBUMIN 2.5 g/dL (3.2-5.5); ALBUMIN/GLOBULIN RATIO 0.9 (1.0-2.2); BILIRUBIN,TOTAL 0.9 mg/dL (0.2-1.0); TOTAL PROTEIN 5.3 g/dL (6.7-8.2)
[2017-11-24] MEDS: INSULIN ASPART 300 UNIT/3 ML PEN SUBQ SCH ×4 (07:45→20:42)
[2017-11-24] MEDS: SACCHAROMYCES BOULARDII 250 MG CAPSULE PO SCH ×2 (08:43→16:53)
[2017-11-24] MEDS: OXYBUTYNIN 5MG TABLET PO SCH ×2 (08:43→20:42)
[2017-11-24] MEDS: amLODIPine 5 MG TABLET PO SCH (08:43)
[2017-11-24] MEDS: SENNA 8.6 MG TABLET PO SCH (08:43)
[2017-11-24] MEDS: DOCUSATE SODIUM 250 MG CAPSULE PO SCH (08:43)
[2017-11-24] MEDS: predniSONE 5 MG TABLET PO SCH (08:43)
[2017-11-24] MEDS: cefTRIAXone 1 GM in SODIUM CHLORIDE 0.9% MINIBAG 100 ML IV SCH (08:44)
[2017-11-24] MEDS: ENOXAPARIN 40 MG/0.4 ML SYRINGE SUBQ SCH (08:45)
[2017-11-24] MEDS: POLYETHYLENE GLYCOL 3350 17 GM PACKET PO SCH (08:45)
[2017-11-24] MEDS: FAMOTIDINE 20 MG TABLET PO SCH (08:45)
[2017-11-24] MEDS: levoFLOXacin 250 MG TABLET PO SCH (08:52)
[2017-11-24] MEDS: SODIUM CHLORIDE 0.9% 1,000 ML IV SCH (09:47)
--- NOTE | 2017-11-24 12:04 | PROVIDER PROGRESS NOTE ---
Assessment/Plan - Problem List (1) Cystitis Assessment/Plan: Patient presented to the emergency department with 3 days of altered mental status and poor appetite. On presentation the patient had leukocytosis with WBC count of 12.1. He appeared to be dry on examination and urinalysis was grossly positive with greater than 25 WBCs, many bacteria, large leukocyte esterase, positive nitrites and moderate blood. The patient also had a CT of his abdomen and pelvis given the blood in the urine which showed urinary bladder wall thickening and mild bilateral perinephric stranding in keeping with cystitis. Patient is much improved today as he is more alert and conversant. He is eating his breakfast. WBC has improved. Urine cx growing ecoli susceptible to levaquin Blood cx negative Plan: Change to PO levaquin IV fluids Hospice tomorrow (2) Metabolic encephalopathy Conclusion/Plan: Secondary to UTI Resolving (3) Diabetes Conclusion/Plan: Patient has a history of diabetes and is on metformin and glimepiride at home. The patient does take chronic prednisone for COPD and is hyperglycemic on presentation likely secondary to ongoing urinary tract infection. BG stable Plan: Hold metformin and glimepiride Placed on sliding scale insulin Hemoglobin A1c is 10.1 Carb controlled diet Monitor blood glucose before meals at bedtime Qualifiers: Diabetes mellitus type: type 2 Diabetes mellitus care home insulin use: without care home use Diabetes mellitus complication status: with hyperglycemia Qualified Code(s): E11.65 - Type 2 diabetes mellitus with hyperglycemia (4) Hypertension Conclusion/Plan: Continue home meds BP improved Qualifiers: Hypertension type: essential hypertension Qualified Code(s): I10 - Essential (primary) hypertension (5) COPD (chronic obstructive pulmonary disease) Conclusion/Plan: The patient has history of severe COPD on 2.5 L of O2 at home and was wheezing and hypoxic in route to the hospital according to EMS. The patient did receive a nebulizer treatment with which his symptoms resolved. The patient is on chronic prednisone at home. Patient will be continued on his home dose of prednisone while he is hospitalized and placed on duo nebs as needed. Currently he appears to be stable. The patient appears to be declining and has a very poor quality of life. He can only walk 4-5 feet before he has to sit down. Palliative care was consulted and patient will go home with hospice tomorrow Qualifiers: COPD type: unspecified COPD Qualified Code(s): J44.9 - Chronic obstructive pulmonary disease, unspecified (6) History of dementia Conclusion/Plan: Patient does have a history of dementia however his mentation is off from his baseline secondary to urinary tract infection. Patient is at high risk for sundowning and delirium. We will need to continually orient the patient while he is hospitalized. We will need to avoid any sedative medications including Ativan. - Current Meds Current Meds: Current Medications Generic Name Dose Route Start Last Admin Trade Name Freq PRN Reason Stop Dose Admin Amlodipine Besylate 2.5 mg 11/23/17 09:00 11/24/17 08:43 Norvasc PO 2.5 mg DAILY SAMIR Administration Docusate Sodium 250 - 500 mg 11/24/17 09:00 11/24/17 08:43 Colace 250mg Capsule PO 250 mg DAILY SAMIR Administration Enoxaparin Sodium 40 mg 11/23/17 09:00 11/24/17 08:45 Lovenox SUBQ 40 mg DAILY SAMIR Administration Famotidine 20 mg 11/23/17 09:00 11/24/17 08:45 Pepcid PO 20 mg DAILY SAMIR Administration Sodium Chloride 1,000 mls @ 100 mls/hr 11/22/17 19:15 11/24/17 09:47 Normal Saline 0.9% IV 100 mls/hr .Q10H SAMIR Administration Insulin Aspart 1 - 5 unit 11/22/17 21:00 11/24/17 11:56 Novolog SUBQ 2 unit 0800,1200,1700,2100 SAMIR Administration Protocol Levofloxacin 750 mg 11/24/17 09:00 11/24/17 08:52 Levaquin PO 750 mg DAILY SAMIR Administration Multi-Ingredient Ointment 1 applic 11/22/17 22:49 11/23/17 21:02 Zinc Oxide TOP 1 applic PRN PRN Administration Skin Care Oxybutynin Chloride 5 mg 11/22/17 21:00 11/24/17 08:43 Ditropan PO 5 mg BID SAMIR Administration Polyethylene Glycol 17 gm 11/23/17 09:00 11/24/17 08:45 Miralax PO Not Given DAILY SAMIR Prednisone 5 mg 11/23/17 08:00 11/24/17 08:43 Deltasone PO 5 mg DAILYWM SAMIR Administration Saccharomyces Boulardii 250 mg 11/23/17 08:00 11/24/17 08:43 Florastor PO 250 mg BIDWM SAMIR Administration Senna 8.6 - 17.2 mg 11/24/17 09:00 11/24/17 08:43 Senokot PO 8.6 mg DAILY SAMIR Administration Sodium Chloride 10 ml 11/23/17 01:00 11/24/17 08:45 Normal Saline Flush 0.9% IVP Not Given 0100,0900,1700 SAMIR - Lab Result Lab results reviewed: Yes Fish Bone Diagrams: 11/24/17 04:30 11/24/17 04:30 - Diagnostic Imaging Results Diagnostic Imaging Results: Final report reviewed - Additional Planning Condition/Complexity: Improved My Orders: My Active Orders 11/24/17 09:00 Docusate Sodium 250Mg Capsule [Colace 250Mg Capsule] 250 - 500 mg PO DAILY Senna [Senokot] 8.6 - 17.2 mg PO DAILY levoFLOXacin [Levaquin] 750 mg PO DAILY 11/24/17 09:36 RT [Nebulizer/MDI Tx.] [RC] .Q 4 PRN 11/24/17 Breakfast Dysphagia Mechanically Altered Diet [DIET] Plan Discussed with:: Patient, Family Time Spent: 31-60 minutes Subjective - Subjective Patient Reports: Feeling Better, Resting Comfortably, No Complaints, Other (No fevers overnight) Nursing Reports: No Complaints Objective Vital Signs: Vital Signs - 24 hr 11/23/17 11/24/17 11/24/17 17:15 00:00 07:58 Temperature 36.8 C 37.0 C 36.3 C L Heart Rate Heart Rate [ 100 58 L 57 L Brachial] Respiratory 16 16 16 Rate Blood Pressure 143/55 H 136/55 H 163/40 H [Left Brachial artery] O2 Saturation 97 94 96 11/24/17 09:37 Temperature Heart Rate 68 Heart Rate [ Brachial] Respiratory 12 Rate Blood Pressure [Left Brachial artery] O2 Saturation Oxygen O2 Source Room air I&O (Last 24 Hrs): Intake and Output Totals x24h 11/22/17 11/23/17 11/24/17 23:59 23:59 23:59 Intake Total 200 3610.000 1220.000 Balance 200 3610.000 1220.000 General: Alert, Cooperative, No acute distress, Other (Oriented x2, dysarthria) HEENT: Atraumatic, PERRLA, EOMI, Mucous membr. moist/pink Neck: Supple, No JVD, No thyromegaly, +2 carotid pulse wo bruit, No LAD Lymphatic: no adenopathy Neuro: Alert, Disoriented, Focal Deficits (dysarthria, left sided weakness), CN 2-12 Grossly Intact Cardiovascular: Regular rate, Normal S1, Normal S2, No murmurs Respiratory: Chest non-tender, No respiratory distress, Other (Decreased bretah sounds) Abdomen: Normal bowel sounds, Soft, No tenderness, No hepatospenomegaly Extremities: No clubbing, No cyanosis, Normal pulses Skin: No rashes, No breakdown - Results Results: Laboratory Results WBC 6.8 x10^3/uL (4.8-10.8) 11/24/17 04:30 RBC 4.17 10^6/uL (4.70-6.10) L 11/24/17 04:30 Hgb 12.5 g/dL (14.0-18.0) L 11/24/17 04:30 Hct 36.2 % (42.0-52.0) L 11/24/17 04:30 MCV 86.8 fL (80.0-94.0) 11/24/17 04:30 MCH 30.0 pg (27.0-31.0) 11/24/17 04:30 MCHC 34.6 g/dL (32.0-36.0) 11/24/17 04:30 RDW 13.4 % (12.0-15.0) 11/24/17 04:30 Plt Count 181 10^3/uL (130-450) 11/24/17 04:30 MPV 9.2 fL (7.4-11.4) 11/24/17 04:30 Neut # (Auto) 3.3 10^3/uL (1.5-6.6) 11/24/17 04:30 Lymph # (Auto) 2.4 10^3/uL (1.5-3.5) 11/24/17 04:30 [place] # (Auto) 0.9 10^3/uL (0.0-1.0) 11/24/17 04:30 Eos # (Auto) 0.2 10^3/uL (0.0-0.7) 11/24/17 04:30 Baso # (Auto) 0.1 10^3/uL (0.0-0.1) 11/24/17 04:30 Absolute Nucleated RBC 0.00 x10^3/uL 11/24/17 04:30 Nucleated RBC % 0.1 /100WBC 11/24/17 04:30 Manual Slide Review Indicated 11/22/17 13:55 WBC Morphology (NORMAL) 11/22/17 13:55 Platelet Estimate NORMAL (130-450,000) (NORMAL) 11/22/17 13:55 Platelet Morphology NORMAL APPEARANCE (NORMAL) 11/22/17 13:55 RBC Morph Micro Appear NORMAL APPEARANCE (NORMAL) 11/22/17 13:55 Sodium 142 mmol/L (135-145) 11/24/17 04:30 Potassium 3.5 mmol/L (3.5-5.0) 11/24/17 04:30 Chloride 110 mmol/L (101-111) 11/24/17 04:30 Carbon Dioxide 27 mmol/L (21-32) 11/24/17 04:30 Anion Gap 5.0 (6-13) L 11/24/17 04:30 BUN 11 mg/dL (6-20) 11/24/17 04:30 Creatinine 1.0 mg/dL (0.6-1.2) 11/24/17 04:30 Estimated GFR (MDRD) 72 (>89) L 11/24/17 04:30 Glucose 120 mg/dL (70-100) H 11/24/17 04:30 POC Whole Bld Glucose 182 mg/dL (70 - 100) H 11/24/17 11:46 Glycated Hemoglobin 10.1 % (4.6-6.2) H 11/23/17 05:25 Estim Average Glucose 243 (70-100) H 11/23/17 05:25 Lactic Acid 1.4 mmol/L (0.5-2.2) 11/22/17 14:36 Calcium 8.0 mg/dL (8.5-10.3) L 11/24/17 04:30 Total Bilirubin 0.9 mg/dL (0.2-1.0) 11/24/17 04:30 AST 12 IU/L (10-42) 11/24/17 04:30 ALT 10 IU/L (10-60) 11/24/17 04:30 Alkaline Phosphatase 48 IU/L (42-121) 11/24/17 04:30 Troponin I < 0.04 ng/mL (<0.49) 11/22/17 14:36 Total Protein 5.3 g/dL (6.7-8.2) L 11/24/17 04:30 Albumin 2.5 g/dL (3.2-5.5) L 11/24/17 04:30 Globulin 2.8 g/dL (2.1-4.2) 11/24/17 04:30 Albumin/Globulin Ratio 0.9 (1.0-2.2) L 11/24/17 04:30 Lipase 21 U/L (22-51) L 11/22/17 14:36 TSH 2.26 uIU/mL (0.34-5.60) 11/22/17 14:36 Urine Color YELLOW 11/22/17 14:55 Urine Clarity TURBID (CLEAR) 11/22/17 14:55 Urine pH 6.0 PH (5.0-7.5) 11/22/17 14:55 Ur Specific [place] >=1.030 (1.002-1.030) H 11/22/17 14:55 Urine Protein 100 mg/dL (NEGATIVE) H 11/22/17 14:55 Urine Glucose (UA) NEGATIVE mg/dL (NEGATIVE) 11/22/17 14:55 Urine Ketones TRACE mg/dL (NEGATIVE) 11/22/17 14:55 Urine Occult Blood MODERATE (NEGATIVE) H 11/22/17 14:55 Urine Nitrite POSITIVE (NEGATIVE) H 11/22/17 14:55 Urine Bilirubin NEGATIVE (NEGATIVE) 11/22/17 14:55 Urine Urobilinogen 0.2 (NORMAL) E.U./dL (NORMAL) 11/22/17 14:55 Ur Leukocyte Esterase LARGE (NEGATIVE) H 11/22/17 14:55 Urine RBC TNTC /HPF (0-5) H 11/22/17 14:55 Urine WBC >25 /HPF (0-3) H 11/22/17 14:55 Urine WBC Clumps PRESENT 11/22/17 14:55 Ur Squamous Epith Cells NONE SEEN (<= Few) 11/22/17 14:55 Urine Bacteria Many /HPF (None Seen) H 11/22/17 14:55 Ur Microscopic Review INDICATED 11/22/17 14:55 Urine Culture Comments INDICATED 11/22/17 14:55 ABX Reporting Has patient been on IV antibiotics over the past 48 hours?: Yes Current Medications - Current Medications Current Medications: Laboratory Results WBC 6.8 x10^3/uL (4.8-10.8) 11/24/17 04:30 RBC 4.17 10^6/uL (4.70-6.10) L 11/24/17 04:30 Hgb 12.5 g/dL (14.0-18.0) L 11/24/17 04:30 Hct 36.2 % (42.0-52.0) L 11/24/17 04:30 MCV 86.8 fL (80.0-94.0) 11/24/17 04:30 MCH 30.0 pg (27.0-31.0) 11/24/17 04:30 MCHC 34.6 g/dL (32.0-36.0) 11/24/17 04:30 RDW 13.4 % (12.0-15.0) 11/24/17 04:30 Plt Count 181 10^3/uL (130-450) 11/24/17 04:30 MPV 9.2 fL (7.4-11.4) 11/24/17 04:30 Neut # (Auto) 3.3 10^3/uL (1.5-6.6) 11/24/17 04:30 Lymph # (Auto) 2.4 10^3/uL (1.5-3.5) 11/24/17 04:30 [place] # (Auto) 0.9 10^3/uL (0.0-1.0) 11/24/17 04:30 Eos # (Auto) 0.2 10^3/uL (0.0-0.7) 11/24/17 04:30 Baso # (Auto) 0.1 10^3/uL (0.0-0.1) 11/24/17 04:30 Absolute Nucleated RBC 0.00 x10^3/uL 11/24/17 04:30 Nucleated RBC % 0.1 /100WBC 11/24/17 04:30 Manual Slide Review Indicated 11/22/17 13:55 WBC Morphology (NORMAL) 11/22/17 13:55 Platelet Estimate NORMAL (130-450,000) (NORMAL) 11/22/17 13:55 Platelet Morphology NORMAL APPEARANCE (NORMAL) 11/22/17 13:55 RBC Morph Micro Appear NORMAL APPEARANCE (NORMAL) 11/22/17 13:55 Sodium 142 mmol/L (135-145) 11/24/17 04:30 Potassium 3.5 mmol/L (3.5-5.0) 11/24/17 04:30 Chloride 110 mmol/L (101-111) 11/24/17 04:30 Carbon Dioxide 27 mmol/L (21-32) 11/24/17 04:30 Anion Gap 5.0 (6-13) L 11/24/17 04:30 BUN 11 mg/dL (6-20) 11/24/17 04:30 Creatinine 1.0 mg/dL (0.6-1.2) 11/24/17 04:30 Estimated GFR (MDRD) 72 (>89) L 11/24/17 04:30 Glucose 120 mg/dL (70-100) H 11/24/17 04:30 POC Whole Bld Glucose 182 mg/dL (70 - 100) H 11/24/17 11:46 Glycated Hemoglobin 10.1 % (4.6-6.2) H 11/23/17 05:25 Estim Average Glucose 243 (70-100) H 11/23/17 05:25 Lactic Acid 1.4 mmol/L (0.5-2.2) 11/22/17 14:36 Calcium 8.0 mg/dL (8.5-10.3) L 11/24/17 04:30 Total Bilirubin 0.9 mg/dL (0.2-1.0) 11/24/17 04:30 AST 12 IU/L (10-42) 11/24/17 04:30 ALT 10 IU/L (10-60) 11/24/17 04:30 Alkaline Phosphatase 48 IU/L (42-121) 11/24/17 04:30 Troponin I < 0.04 ng/mL (<0.49) 11/22/17 14:36 Total Protein 5.3 g/dL (6.7-8.2) L 11/24/17 04:30 Albumin 2.5 g/dL (3.2-5.5) L 11/24/17 04:30 Globulin 2.8 g/dL (2.1-4.2) 11/24/17 04:30 Albumin/Globulin Ratio 0.9 (1.0-2.2) L 11/24/17 04:30 Lipase 21 U/L (22-51) L 11/22/17 14:36 TSH 2.26 uIU/mL (0.34-5.60) 11/22/17 14:36 Urine Color YELLOW 11/22/17 14:55 Urine Clarity TURBID (CLEAR) 11/22/17 14:55 Urine pH 6.0 PH (5.0-7.5) 11/22/17 14:55 Ur Specific [place] >=1.030 (1.002-1.030) H 11/22/17 14:55 Urine Protein 100 mg/dL (NEGATIVE) H 11/22/17 14:55 Urine Glucose (UA) NEGATIVE mg/dL (NEGATIVE) 11/22/17 14:55 Urine Ketones TRACE mg/dL (NEGATIVE) 11/22/17 14:55 Urine Occult Blood MODERATE (NEGATIVE) H 11/22/17 14:55 Urine Nitrite POSITIVE (NEGATIVE) H 11/22/17 14:55 Urine Bilirubin NEGATIVE (NEGATIVE) 11/22/17 14:55 Urine Urobilinogen 0.2 (NORMAL) E.U./dL (NORMAL) 11/22/17 14:55 Ur Leukocyte Esterase LARGE (NEGATIVE) H 11/22/17 14:55 Urine RBC TNTC /HPF (0-5) H 11/22/17 14:55 Urine WBC >25 /HPF (0-3) H 11/22/17 14:55 Urine WBC Clumps PRESENT 11/22/17 14:55 Ur Squamous Epith Cells NONE SEEN (<= Few) 11/22/17 14:55 Urine Bacteria Many /HPF (None Seen) H 11/22/17 14:55 Ur Microscopic Review INDICATED 11/22/17 14:55 Urine Culture Comments INDICATED 11/22/17 14:55 Active Medications Generic Name Dose Route Start Last Admin Trade Name Freq PRN Reason Stop Dose Admin Acetaminophen 650 mg 11/22/17 17:43 Tylenol PO Q4HR PRN Pain 1 to 4 Albuterol/Ipratropium 3 ml 11/22/17 17:54 Duoneb INH Q4HR PRN Wheezing Amlodipine Besylate 2.5 mg 11/23/17 09:00 11/24/17 08:43 Norvasc PO 2.5 mg DAILY SAMIR Administration Docusate Sodium 250 - 500 mg 11/24/17 09:00 11/24/17 08:43 Colace 250mg Capsule PO 250 mg DAILY SAMIR Administration Enoxaparin Sodium 40 mg 11/23/17 09:00 11/24/17 08:45 Lovenox SUBQ 40 mg DAILY SAMIR Administration Famotidine 20 mg 11/23/17 09:00 11/24/17 08:45 Pepcid PO 20 mg DAILY SAMIR Administration Sodium Chloride 1,000 mls @ 100 mls/hr 11/22/17 19:15 11/24/17 09:47 Normal Saline 0.9% IV 100 mls/hr .Q10H SAMIR Administration Insulin Aspart 1 - 5 unit 11/22/17 21:00 11/24/17 11:56 Novolog SUBQ 2 unit 0800,1200,1700,2100 SAMIR Administration Protocol Levofloxacin 750 mg 11/24/17 09:00 11/24/17 08:52 Levaquin PO 750 mg DAILY SAMIR Administration Multi-Ingredient Ointment 1 applic 11/22/17 22:49 11/23/17 21:02 Zinc Oxide TOP 1 applic PRN PRN Administration Skin Care Ondansetron HCl 4 mg 11/22/17 17:43 Zofran Inj IVP Q6HR PRN Nausea / Vomiting Oxybutynin Chloride 5 mg 11/22/17 21:00 11/24/17 08:43 Ditropan PO 5 mg BID SAMIR Administration Oxycodone HCl 5 mg 11/22/17 17:43 Roxicodone PO Q4HR PRN Pain 5 to 7 Polyethylene Glycol 17 gm 11/23/17 09:00 11/24/17 08:45 Miralax PO Not Given DAILY SAMIR Prednisone 5 mg 11/23/17 08:00 11/24/17 08:43 Deltasone PO 5 mg DAILYWM SAMIR Administration Prochlorperazine Edisylate 10 mg 11/22/17 17:43 Compazine Inj IVP Q6HR PRN Nausea / Vomiting Promethazine HCl 25 mg 11/22/17 17:43 Phenergan Inj IM Q6HR PRN Nausea / Vomiting Saccharomyces Boulardii 250 mg 11/23/17 08:00 11/24/17 08:43 Florastor PO 250 mg BIDWM SAMIR Administration Senna 8.6 - 17.2 mg 11/24/17 09:00 11/24/17 08:43 Senokot PO 8.6 mg DAILY SAMIR Administration Sodium Chloride 10 ml 11/22/17 17:43 Normal Saline Flush 0.9% IVP PRN PRN NEEDED PER PROVIDER ORDERS Sodium Chloride 10 ml 11/23/17 01:00 11/24/17 08:45 Normal Saline Flush 0.9% IVP Not Given 0100,0900,1700 SAMIR Albuterol Sulf [Ventolin Hfa Inhaler] 2 puffs INH Q4H PRN 11/22/17 Amlodipine Besylate [Norvasc] 2.5 mg PO DAILY 11/22/17 Ergocalciferol (Vitamin D2) [Drisdol] 50,000 unit PO Q7D 11/22/17 Glimepiride [Glimepiride] 1 mg PO DAILYWM 11/22/17 Metformin HCl [Metformin HCl] 500 mg PO BIDWM 11/22/17 Naproxen Sodium [Aleve] 220 mg PO BID PRN 11/22/17 Omeprazole [Omeprazole] 20 mg PO QDAC 11/22/17 Oxybutynin [Ditropan] 5 mg PO BID 11/22/17 predniSONE [Deltasone] 5 mg PO DAILYWM 11/22/17
[2017-11-24] MEDS: ZINC OXIDE 20% OINT 28.35 GM TUBE TOP PRN (20:42)
[2017-11-25] MEDS: SODIUM CHLORIDE FLUSH 0.9% 10 ML SYRINGE IVP SCH ×2 (00:10→07:57)
[2017-11-25 05:58] LABS: BASOPHILS # (AUTO) 0.1 10^3/uL (0.0-0.1); BASOPHILS % (AUTO) 1.4 %; EOSINOPHILS # (AUTO) 0.2 10^3/uL (0.0-0.7); EOSINOPHILS % (AUTO) 2.6 %; LYMPHOCYTES # (AUTO) 2.3 10^3/uL (1.5-3.5); LYMPHOCYTES % (AUTO) 29.3 %; MEAN CORPUSCULAR HEMOGLOBIN 30.1 pg (27.0-31.0); MEAN CORPUSCULAR HGB CONC 35.1 g/dL (32.0-36.0); MEAN CORPUSCULAR VOLUME 85.8 fL (80.0-94.0); MEAN PLATELET VOLUME 8.6 fL (7.4-11.4); MONOCYTES % (AUTO) 12.9 %; NEUTROPHILS # (AUTO) 4.1 10^3/uL (1.5-6.6); NEUTROPHILS % (AUTO) 53.8 %; PLT - PLATELET COUNT 203 10^3/uL (130-450); RED BLOOD COUNT 4.33 10^6/uL (4.70-6.10); RED CELL DISTRIBUTION WIDTH 13.1 % (12.0-15.0); WHITE BLOOD COUNT 7.7 x10^3/uL (4.8-10.8)
[2017-11-25 06:09] LABS: ALBUMIN 2.7 g/dL (3.2-5.5); ALBUMIN/GLOBULIN RATIO 0.9 (1.0-2.2); CALCIUM 8.4 mg/dL (8.5-10.3); TOTAL PROTEIN 5.8 g/dL (6.7-8.2)
[2017-11-25] MEDS: INSULIN ASPART 300 UNIT/3 ML PEN SUBQ SCH ×2 (07:37→12:08)
[2017-11-25] MEDS: levoFLOXacin 250 MG TABLET PO SCH (07:53)
[2017-11-25] MEDS: predniSONE 5 MG TABLET PO SCH (07:53)
[2017-11-25] MEDS: SENNA 8.6 MG TABLET PO SCH (07:53)
[2017-11-25] MEDS: SACCHAROMYCES BOULARDII 250 MG CAPSULE PO SCH (07:53)
[2017-11-25] MEDS: FAMOTIDINE 20 MG TABLET PO SCH (07:54)
[2017-11-25] MEDS: amLODIPine 5 MG TABLET PO SCH (07:54)
[2017-11-25] MEDS: OXYBUTYNIN 5MG TABLET PO SCH (07:54)
[2017-11-25] MEDS: DOCUSATE SODIUM 250 MG CAPSULE PO SCH (07:54)
[2017-11-25] MEDS: ENOXAPARIN 40 MG/0.4 ML SYRINGE SUBQ SCH ×2 (07:57→07:59)
[2017-11-25] MEDS: POLYETHYLENE GLYCOL 3350 17 GM PACKET PO SCH (07:57)
[2017-11-25] MEDS ORDERED: POTASSIUM CHLORIDE 20 MEQ TABLET PO SCH (08:00)
--- NOTE | 2017-11-25 10:36 | Discharge Plan ---
Discharge Plan Disposition: 50 Hospice/Home DC/Xfer Condition: Fair Prescriptions: Levofloxacin [Levaquin] 750 mg PO DAILY #11 tablet Diet: Diabetic Activity Restrictions: Activity as Tolerated Shower Restrictions: No Driving Restrictions: No Assistance Devices: Wheelchair Weight Bearing: Full Weight Additional Instructions or Follow Up instructions: You were admitted to the hospital with altered mental status and decreased appetite. He was found to have a urinary tract infection. We treated your infection with IV antibiotics. You seem to have improved significantly. While she you are hospitalized we had a discussion with palliative care and you will receive appropriate equipment at home and be followed up with hospice once you arrive home. Given your deteriorating status over the last year we feel that you are appropriate for hospice at this time. No Smoking: If you smoke, Please STOP! Call for help. Follow-up with: Teja Gauthier MD [Primary Care Provider] -
--- NOTE | 2017-11-25 11:06 | DISCHARGE SUMMARY ---
Discharge Summary Condition at Discharge: Fair Discharge Disposition: 50 Hospice/Home DC/Xfer - DIAGNOSES Admission Diagnoses: 1. Cystitis 2. Metabolic encephalopathy 3. Diabetes 4. Hypertension 5. COPD 6. History of dementia Discharge Diagnoses with Status of Each Condition: 1. Cystitis: Improving 2. Metabolic encephalopathy: Resolved 3. Diabetes: Stable 4. Hypertension: Stable 5. COPD: Guarded 6. 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 According to the patient's the patient has been declining over the last 7-8 years with worsening COPD and really declined over the last year and a half. She states that things started when he had a stroke and fell and was taken to a trauma care unit where he was hospitalized for prolonged time. She states that he has been in and out of the hospital multiple times over the last year. She states that her and her used to spend their kim in [place] but recently their children have brought them permanently up to [facility] as the patient's health has become so poor. She states that over the last few months his COPD is so bad that he can barely walk 4-5 feet before he has to stop and sit in his walker. She states that his quality of life has declined significantly. Over the last 3-4 days she states that the patient has had decreased appetite and has only eaten a couple of pieces of watermelon in the last 4 days. She states that he has become increasingly confused and this morning he was crying out and seemed to be acting like a child. She states that he became very confused last night and was not making any sense. She states that a home health worker came to see him today and advised that he come to the emergency department. She also states that she is noted that he has had foul-smelling urine the last several days. She is also noticed that it has been cloudy and blood-tinged. The patient himself is unable to provide any significant history. He has difficulties with his speech and although he does greet me he cannot give me much insight on his illness or what has been going on over the last several days. On presentation to the emergency department the patient was afebrile and slightly hypertensive but otherwise vital signs were within normal limits. The patient was very confused and again unable to provide history. The patient underwent routine lab work which showed that he had a leukocytosis of 12.1 and a mildly elevated bilirubin of 2.2. The patient's lactic acid was 1.4 and his TSH was normal. Patient's creatinine was 1.3 with no prior baseline. Patient was hyperglycemic with a glucose of 183. The patient's urine was very cloudy appearing and was positive for urinary tract infection with greater than 25 WBCs , many bacteria, positive leukocyte esterase, positive nitrites and moderate blood. The patient did undergo a chest x-ray which showed his old healed right clavicular fracture and chronic ununited left distal clavicular fracture. There was no evidence of any cardiopulmonary abnormality on the chest x-ray. The patient also had a CT head which showed old left thalamic and right cerebellar infarcts as well as normal pressure hydrocephalus. There was no acute findings on the CT scan. The patient also underwent a CT of his abdomen and pelvis which revealed bladder wall thickening and mild bilateral perinephric stranding consistent with a cystitis. Given the patient's altered mental status, leukocytosis and severe urinary tract infection the patient was admitted to the medical [facility] for IV antibiotics and IV fluids. - HOSPITAL COURSE Hospital Course: (1) Cystitis Assessment/Plan: Patient presented to the emergency department with 3 days of altered mental status and poor appetite. On presentation the patient had leukocytosis with WBC count of 12.1. He appeared to be dry on examination and urinalysis was grossly positive with greater than 25 WBCs, many bacteria, large leukocyte esterase, positive nitrites and moderate blood. The patient also had a CT of his abdomen and pelvis given the blood in the urine which showed urinary bladder wall thickening and mild bilateral perinephric stranding in keeping with cystitis. Patient is much improved as he is more alert and conversant. Improved appetite. WBC has improved. Urine cx growing ecoli susceptible to levaquin Blood cx negative Started on IV abx then switched to PO levaquin Given IV fluids Patient will be discharged home with PO levaquin to complete 14 days of treatment Patient seen by palliative care and will be accessed by Hospice at home later today for enrollment. (2) Metabolic encephalopathy Conclusion/Plan: Resolved with treatment of UTI (3) Diabetes Conclusion/Plan: Patient has a history of diabetes and is on metformin and glimepiride at home. The patient does take chronic prednisone for COPD and is hyperglycemic on presentation likely secondary to ongoing urinary tract infection. BG stable Was placed on SS insulin and DM diet Will restart patient on metformin and glimepiride at discharge Qualifiers: Diabetes mellitus type: type 2 Diabetes mellitus watermelon inspector insulin use: without care home use Diabetes mellitus complication status: with hyperglycemia Qualified Code(s): E11.65 - Type 2 diabetes mellitus with hyperglycemia (4) Hypertension Conclusion/Plan: BP remained stable Will continue patient on amlodipine at discharge Qualifiers: Hypertension type: essential hypertension Qualified Code(s): I10 - Essential (primary) hypertension (5) COPD (chronic obstructive pulmonary disease) Conclusion/Plan: The patient has history of severe COPD on 2.5 L of O2 at home and was wheezing and hypoxic in route to the hospital according to EMS. The patient did receive a nebulizer treatment with which his symptoms resolved. The patient is on chronic prednisone at home. Patient will be continued on his home dose of prednisone while he was is hospitalized and placed on duo nebs as needed. Currently he appears to be stable. The patient appears to be declining and has a very poor quality of life. He can only walk 4-5 feet before he has to sit down. Palliative care was consulted and patient will go home with hospice Qualifiers: COPD type: unspecified COPD Qualified Code(s): J44.9 - Chronic obstructive pulmonary disease, unspecified (6) History of dementia Conclusion/Plan: Stable - ALLERGIES Allergies/Adverse Reactions: Allergies Allergy/AdvReac Type Severity Reaction Status Date / Time iodine Allergy Anaphylaxis Verified 11/22/17 13:43 - MEDICATIONS Home Medications: Ambulatory Orders Medication Instructions Recorded Confirmed Albuterol Sulf [Ventolin Hfa 2 puffs INH Q4H PRN 11/22/17 11/22/17 Inhaler] Amlodipine Besylate [Norvasc] 2.5 mg PO DAILY 11/22/17 11/22/17 Ergocalciferol (Vitamin D2) 50,000 unit PO Q7D 11/22/17 11/22/17 [Drisdol] Glimepiride 1 mg PO DAILYWM 11/22/17 11/22/17 Metformin HCl 500 mg PO BIDWM 11/22/17 11/22/17 Naproxen Sodium [Aleve] 220 mg PO BID PRN 11/22/17 11/22/17 Omeprazole 20 mg PO QDAC 11/22/17 11/22/17 Oxybutynin [Ditropan] 5 mg PO BID 11/22/17 11/22/17 predniSONE [Deltasone] 5 mg PO DAILYWM 11/22/17 11/22/17 Levofloxacin [Levaquin] 750 mg PO DAILY #11 tablet 11/25/17 - PHYSICAL EXAM AT DISCHARGE General Appearance: positive: No acute distress, Alert, Other (Dysarthria and dementia) Eyes Bilateral: positive: Normal inspection, PERRL, EOMI, No lid inflammation, Conjunctivae nml, No scleral icterus ENT: positive: ENT inspection nml, Pharynx nml, No signs of dehydration. negative: Purulent nasal drainage, Pharyngeal erythema, Oral lesions Neck: positive: Nml inspection, Thyroid nml, No JVD, Trachea midline. negative : Thyromegaly, Lymphadenopathy (R), Lymphadenopathy (L), Carotid bruit, Tracheal deviation Respiratory: positive: Chest non-tender, No respiratory distress, Wheezes, Other (Decreased breath sounds bilaterally) Cardiovascular: positive: Regular rate & rhythm, No murmur, No gallop Peripheral Pulses: positive: 2+ Abdomen: positive: Non-tender, No organomegaly, Nml bowel sounds, No distention. negative: Guarding, Rebound, Hepatomegaly Back: positive: Nml inspection. negative: CVA tenderness (R), CVA tenderness (L ) Skin: positive: Color nml, No rash, Warm Extremities: positive: Non-tender, Full ROM, Nml appearance, No pedal edema Neurologic/Psychiatric: positive: CN's nml (2-12), Sensation nml, Mood/affect nml, Disoriented to person, Weakness, Slurred/abnml speech - LABS Result Diagrams: 11/25/17 05:45 11/25/17 05:45 Other Lab Results: Laboratory Results WBC 7.7 x10^3/uL (4.8-10.8) 11/25/17 05:45 RBC 4.33 10^6/uL (4.70-6.10) L 11/25/17 05:45 Hgb 13.0 g/dL (14.0-18.0) L 11/25/17 05:45 Hct 37.2 % (42.0-52.0) L 11/25/17 05:45 MCV 85.8 fL (80.0-94.0) 11/25/17 05:45 MCH 30.1 pg (27.0-31.0) 11/25/17 05:45 MCHC 35.1 g/dL (32.0-36.0) 11/25/17 05:45 RDW 13.1 % (12.0-15.0) 11/25/17 05:45 Plt Count 203 10^3/uL (130-450) 11/25/17 05:45 MPV 8.6 fL (7.4-11.4) 11/25/17 05:45 Neut # (Auto) 4.1 10^3/uL (1.5-6.6) 11/25/17 05:45 Lymph # (Auto) 2.3 10^3/uL (1.5-3.5) 11/25/17 05:45 [place] # (Auto) 1.0 10^3/uL (0.0-1.0) 11/25/17 05:45 Eos # (Auto) 0.2 10^3/uL (0.0-0.7) 11/25/17 05:45 Baso # (Auto) 0.1 10^3/uL (0.0-0.1) 11/25/17 05:45 Absolute Nucleated RBC 0.00 x10^3/uL 11/25/17 05:45 Nucleated RBC % 0.0 /100WBC 11/25/17 05:45 Manual Slide Review Indicated 11/22/17 13:55 WBC Morphology (NORMAL) 11/22/17 13:55 Platelet Estimate NORMAL (130-450,000) (NORMAL) 11/22/17 13:55 Platelet Morphology NORMAL APPEARANCE (NORMAL) 11/22/17 13:55 RBC Morph Micro Appear NORMAL APPEARANCE (NORMAL) 11/22/17 13:55 Sodium 139 mmol/L (135-145) 11/25/17 05:45 Potassium 3.3 mmol/L (3.5-5.0) L 11/25/17 05:45 Chloride 102 mmol/L (101-111) 11/25/17 05:45 Carbon Dioxide 27 mmol/L (21-32) 11/25/17 05:45 Anion Gap 10.0 (6-13) 11/25/17 05:45 BUN 7 mg/dL (6-20) 11/25/17 05:45 Creatinine 1.0 mg/dL (0.6-1.2) 11/25/17 05:45 Estimated GFR (MDRD) 72 (>89) L 11/25/17 05:45 Glucose 112 mg/dL (70-100) H 11/25/17 05:45 POC Whole Bld Glucose 106 mg/dL (70 - 100) H 11/25/17 07:21 Glycated Hemoglobin 10.1 % (4.6-6.2) H 11/23/17 05:25 Estim Average Glucose 243 (70-100) H 11/23/17 05:25 Lactic Acid 1.4 mmol/L (0.5-2.2) 11/22/17 14:36 Calcium 8.4 mg/dL (8.5-10.3) L 11/25/17 05:45 Total Bilirubin 1.0 mg/dL (0.2-1.0) 11/25/17 05:45 AST 14 IU/L (10-42) 11/25/17 05:45 ALT 12 IU/L (10-60) 11/25/17 05:45 Alkaline Phosphatase 51 IU/L (42-121) 11/25/17 05:45 Troponin I < 0.04 ng/mL (<0.49) 11/22/17 14:36 Total Protein 5.8 g/dL (6.7-8.2) L 11/25/17 05:45 Albumin 2.7 g/dL (3.2-5.5) L 11/25/17 05:45 Globulin 3.1 g/dL (2.1-4.2) 11/25/17 05:45 Albumin/Globulin Ratio 0.9 (1.0-2.2) L 11/25/17 05:45 Lipase 21 U/L (22-51) L 11/22/17 14:36 TSH 2.26 uIU/mL (0.34-5.60) 11/22/17 14:36 Urine Color YELLOW 11/22/17 14:55 Urine Clarity TURBID (CLEAR) 11/22/17 14:55 Urine pH 6.0 PH (5.0-7.5) 11/22/17 14:55 Ur Specific [place] >=1.030 (1.002-1.030) H 11/22/17 14:55 Urine Protein 100 mg/dL (NEGATIVE) H 11/22/17 14:55 Urine Glucose (UA) NEGATIVE mg/dL (NEGATIVE) 11/22/17 14:55 Urine Ketones TRACE mg/dL (NEGATIVE) 11/22/17 14:55 Urine Occult Blood MODERATE (NEGATIVE) H 11/22/17 14:55 Urine Nitrite POSITIVE (NEGATIVE) H 11/22/17 14:55 Urine Bilirubin NEGATIVE (NEGATIVE) 11/22/17 14:55 Urine Urobilinogen 0.2 (NORMAL) E.U./dL (NORMAL) 11/22/17 14:55 Ur Leukocyte Esterase LARGE (NEGATIVE) H 11/22/17 14:55 Urine RBC TNTC /HPF (0-5) H 11/22/17 14:55 Urine WBC >25 /HPF (0-3) H 11/22/17 14:55 Urine WBC Clumps PRESENT 11/22/17 14:55 Ur Squamous Epith Cells NONE SEEN (<= Few) 11/22/17 14:55 Urine Bacteria Many /HPF (None Seen) H 11/22/17 14:55 Ur Microscopic Review INDICATED 11/22/17 14:55 Urine Culture Comments INDICATED 11/22/17 14:55 - DIAGNOSTIC IMAGING Diagnostic Imaging Results: Final report reviewed Diagnostic Imaging Results Comments: Chest x-ray Impression: No acute cardiopulmonary abnormality 2. 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 CT head Impression: 1. No acute intracranial abnormality. 2. Remote left thalamic and right cerebellar infarcts. 3. Moderately enlarged ventricles may be due to volume loss. The differential diagnosis includes normal pressure hydrocephalus. CT abdomen/pelvis Impression: 1. Urinary bladder wall thickening and mild bilateral perinephric stranding without calculi or obstruction. Findings are in keeping with cystitis. The perinephric stranding may be senescent or could be seen with urinary tract infection or pyelonephritis. No evidence of a perinephric abscess. 2. Colonic diverticulosis without acute diverticulitis and additional findings as above. - FOLLOW UP Follow Up: Patient was admitted for cystitis and was treated with IV antibiotics. Urine cultures returned showing E. coli that was susceptible to Levaquin. Patient was switched to p.o. Levaquin and discharged home with hospice. Palliative care saw the patient while he was hospitalized for failure to thrive and severe COPD with rapidly worsening condition over the last 6 months. It was felt that the patient was appropriate for hospice and will be seen by hospice once he returns to his home today. - TIME SPENT Time Spent in Discharge (Minutes): 45
[2017-11-25 13:33] VITALS: BP 134/58
== END 2017-11-25 14:02 | disposition home or self-care (01) | DRG 689 ==
LOC: EDUNIT# → ED 13:31 → MS2 17:43
PROVIDERS: ADMIT Internal Medicine; ATTEND Internal Medicine
DX: N30.00 Acute cystitis without hematuria (principal); G93.41 Metabolic encephalopathy; B96.20 Unspecified Escherichia coli [E. coli] as the cause of diseases classified elsewhere; R41.82 Altered mental status, unspecified; N39.0 Urinary tract infection, site not specified; F03.90 Unspecified dementia, unspecified severity, without behavioral disturbance, psychotic disturbance, mood disturbance, and anxiety; Z99.81 Dependence on supplemental oxygen; I69.928 Other speech and language deficits following unspecified cerebrovascular disease; I10 Essential (primary) hypertension; E11.9 Type 2 diabetes mellitus without complications; Z74.01 Bed confinement status; J44.9 Chronic obstructive pulmonary disease, unspecified; Z66 Do not resuscitate
CPT/HCPCS: 36415; 70450; 71046; 74176; 80053; 81001; 81003; 83036; 83605; 83690; 84443; 84484; 85025; 87040; 87077; 87086; 87181; 96365; 99223; 99284; 99285

== ENCOUNTER 2017-11-25 14:06 | Outpatient (CLI) | payer MEDICARE, OTHER | END 2017-11-25 14:07 | disposition hospice, home (50) | LOC: EMS 14:06 | PROVIDERS: ATTEND Surgery | DX: J44.9 Chronic obstructive pulmonary disease, unspecified (principal) | CPT/HCPCS: A0425; A0428 ==